=== PATIENT | female | born 1955 | race Caucasian/White ===

== ENCOUNTER → 2016-07-09 | Outpatient (REF) | payer OTHER ==
[~2016-07-09] MED LIST: CEFT500T3 PO; CHLO25TA PO; IMOD2TAB16 PO; LISI-538 PO; TYLE325T5 PO
[2016-07-09 19:22] LABS: CALCIUM LEVEL 9.4 MG/DL (8.8-10.2); CREATININE FOR GFR 1.03 MG/DL (0.55-1.02); PHOSPHORUS LEVEL 4.1 MG/DL (2.5-4.9); POTASSIUM SERUM 4.2 MEQ/L (3.5-5.1)
== END ==
LOC: M LAB REF 18:48
PROVIDERS: ATTEND Internal Medicine Nephrology
DX: I10 Essential (primary) hypertension (principal); N17.9 Acute kidney failure, unspecified; Z72.0 Tobacco use

== ENCOUNTER → 2016-07-23 | Outpatient (REF) | payer MEDICAID | LOC: M SFHCLERA 17:03 | PROVIDERS: ATTEND Nurse Practitioner Family | DX: R22.1 Localized swelling, mass and lump, neck (principal) ==

== ENCOUNTER → 2017-05-20 | Outpatient (CLI) | payer OTHER | LOC: M RAD 12:51 | DX: R05 Cough (principal); Z80.1 Family history of malignant neoplasm of trachea, bronchus and lung; F17.210 Nicotine dependence, cigarettes, uncomplicated | CPT/HCPCS: G0297 ==

== ENCOUNTER → 2017-06-16 | Outpatient (CLI) | payer OTHER | LOC: M PLARAD 13:10 | DX: R91.8 Other nonspecific abnormal finding of lung field (principal) | CPT/HCPCS: 78815 ==

== ENCOUNTER → 2017-07-15 | Outpatient (CLI) | payer OTHER ==
[2017-07-15 13:34] LABS: APPEARANCE, URINE CLEAR (CLEAR); BACTERIA, URINE AUTO NEGATIVE (NEGATIVE); BILIRUBIN, URINE AUTO NEGATIVE (NEGATIVE); BLOOD, URINE BLOOD NEGATIVE (NEGATIVE); COLOR, URINE STRAW (YELLOW); GLUCOSE, URINE (UA) AUTO NEGATIVE (NEGATIVE); KETONE, URINE AUTO NEGATIVE (NEGATIVE); LEUKOCYTE ESTERASE, URINE AUTO NEGATIVE (NEGATIVE); NITRITE, URINE AUTO NEGATIVE (NEGATIVE); PROTEIN, URINE AUTO NEGATIVE (NEGATIVE); RBC, URINE AUTO 1 /HPF (0-3); SPECIFIC GRAVITY URINE AUTO 1.008 (1.002-1.035); SQUAMOUS EPITHELIAL CELL UR AU 0 /HPF (0-6); UROBILINOGEN, URINE AUTO 0.2 mg/dL (0.0-2.0); WBC, URINE AUTO 0 /HPF (0-3)
[2017-07-15 14:01] LABS: ANION GAP 8 MEQ/L (8-16); BLOOD UREA NITROGEN 11 MG/DL (7-18); CALCIUM LEVEL 9.3 MG/DL (8.8-10.2); CARBON DIOXIDE LEVEL 25 MEQ/L (21-32); CHLORIDE LEVEL 107 MEQ/L (98-107); CREATININE FOR GFR 0.89 MG/DL (0.55-1.30); GLOMERULAR FILTRATION RATE > 60.0 (>45); GLUCOSE, FASTING 83 MG/DL (70-100); PHOSPHORUS LEVEL 3.8 MG/DL (2.5-4.9); POTASSIUM SERUM 4.4 MEQ/L (3.5-5.1); SODIUM LEVEL 140 MEQ/L (136-145)
== END ==
LOC: M LAB 12:47
DX: I10 Essential (primary) hypertension (principal); N17.9 Acute kidney failure, unspecified; Z72.0 Tobacco use
CPT/HCPCS: 80069

== ENCOUNTER → 2017-07-22 | Outpatient (CLI) | payer OTHER, MEDICAID | LOC: M LRY 11:44 | DX: R10.10 Upper abdominal pain, unspecified (principal) | CPT/HCPCS: 74018 ==

== ENCOUNTER → 2018-09-13 | Outpatient (CLI) | payer OTHER ==
[~2018-09-13] MED LIST changes: +CHLO125TA PO; -CHLO25TA PO
[2018-09-13 11:43] LABS: APPEARANCE, URINE HAZY (CLEAR); BACTERIA, URINE AUTO NEGATIVE (NEGATIVE); BILIRUBIN, URINE AUTO NEGATIVE (NEGATIVE); BLOOD, URINE BLOOD NEGATIVE (NEGATIVE); COLOR, URINE YELLOW (YELLOW); GLUCOSE, URINE (UA) AUTO NEGATIVE (NEGATIVE); KETONE, URINE AUTO TRACE mg/dL (NEGATIVE); LEUKOCYTE ESTERASE, URINE AUTO NEGATIVE (NEGATIVE); NITRITE, URINE AUTO NEGATIVE (NEGATIVE); PROTEIN, URINE AUTO NEGATIVE (NEGATIVE); RBC, URINE AUTO 2 /HPF (0-3); SPECIFIC GRAVITY URINE AUTO 1.015 (1.002-1.035); SQUAMOUS EPITHELIAL CELL UR AU 0 /HPF (0-6); WBC, URINE AUTO 1 /HPF (0-3)
[2018-09-13 12:40] LABS: CALCIUM LEVEL 9.4 MG/DL (8.8-10.2); GLOMERULAR FILTRATION RATE 59.6 (>45); PHOSPHORUS LEVEL 3.6 MG/DL (2.5-4.9); POTASSIUM SERUM 4.5 MEQ/L (3.5-5.1)
== END ==
LOC: M LAB 11:06
PROVIDERS: ATTEND Internal Medicine Nephrology
DX: I10 Essential (primary) hypertension (principal); N17.9 Acute kidney failure, unspecified; Z72.0 Tobacco use

== ENCOUNTER → 2019-01-10 | Outpatient (CLI) | payer OTHER ==
--- NOTE | 2019-01-10 23:05 | REP ---
PET/CT: HISTORY: Diagnosing lung nodule. COMPARISON: Comparison PET/CT study 06/16/2017. Comparison chest CT 05/20/2017. Comparison chest CT study is also reviewed from 12/14/2018. TECHNIQUE: 51 minutes following the intravenous injection of a 9.04 mCi dose of F-18 FDG, three-dimensional PET scintigraphy is acquired from the skull base to the proximal thighs. Triplanar noncontrast CT scanning is acquired through the same anatomic range for attenuation correction and image registration with scan parameters optimized to minimize radiation exposure to the patient. PET scintigraphy and CT datasets were fused and displayed on a workstation with multiplanar and projection display capability. PET/CT FINDINGS: The previously noted irregular nodular density in the right upper lobe is again seen. It appears unchanged on lung window settings from the accompanying CT study compared to the prior PET/CT from 05/20/2017. It remains non-avid. Maximum standard uptake value 0.78 today, previously 0.73. It appears there is no abnormal hypermetabolic pulmonary parenchymal uptake. No abnormal hilar or mediastinal hypermetabolic uptake is appreciated. There is a non-avid stable precarinal lymph node, which is not enlarged. Maximum standard uptake value 1.79. No abnormal adrenal uptake is seen. The abdomen/pelvis shows normal hepatic, splenic, gastrointestinal, and genitourinary FDG distribution. Head and neck soft tissues are unremarkable. IMPRESSION: Negative PET scintigraphy. No abnormal hypermetabolic uptake is seen in the nodule in the right upper lobe. No significant change seen on PET/CT. Electronically Signed by Jasson Nielson MD 01/11/2019 07:47 A
== END ==
LOC: M PLARAD 07:39
PROVIDERS: ATTEND Family Medicine
DX: R91.1 Solitary pulmonary nodule (principal)
CPT/HCPCS: 78815; A9552

== ENCOUNTER → 2019-11-29 | Outpatient (REF) | payer OTHER ==
[~2019-11-29] MED LIST changes: +AMLO1TAB25 PO; +CARV6.25 PO; +LORA-674 PO; +LOSA50TA88 PO; +NAPR-1182 PO; +NIAC400C2 PO; +ONDA8TAB10 PO; +OXYC-517 PO; +PROC10TA4 PO
[2019-11-29 19:35] LABS: CREATININE FOR GFR 1.15 MG/DL (0.55-1.30); GLOMERULAR FILTRATION RATE 50.6 (>45); POTASSIUM SERUM 3.7 MEQ/L (3.5-5.1)
== END ==
LOC: M LAB REF 17:54
PROVIDERS: ATTEND Nurse Practitioner Family
DX: N18.2 Chronic kidney disease, stage 2 (mild) (principal); E87.6 Hypokalemia

== ENCOUNTER → 2020-01-02 | Outpatient (CLI) | payer OTHER ==
[~2020-01-02] MED LIST changes: -NIAC400C2 PO; -ONDA8TAB10 PO; -OXYC-517 PO; -PROC10TA4 PO
--- NOTE | 2020-01-05 16:24 | REP ---
PET CT HISTORY: Spiculated lung nodule on chest CT. Rule out malignancy. Positive family history of cancer. COMPARISON: PET CT study 01/10/2019 and 06/16/2017. CT study chest 11/28/2019. TECHNIQUE: 1 hour and 11 minutes following the intravenous injection of an 8.67 mCi dose of F18 fluorodeoxyglucose (FDG), three-dimensional PET CT imaging is acquired from the skull base to the proximal thighs. PET CT FINDINGS: The head and neck soft tissues are unremarkable. There is some normal variant skeletal muscle uptake in the scalene muscles bilaterally. The previously noted right upper lobe spiculated nodule, which has enlarged in the interval since the last PET CT has become hypermetabolic. Maximum standard uptake value in this nodule today is measured at 7.67, previously 0.78. There is no abnormal hypermetabolic uptake elsewhere in the lungs. No abnormal hilar or mediastinal hypermetabolic uptake is seen. A stable normal size precarinal lymph node is seen, which is not hypermetabolic. Maximum standard uptake value 1.92. No abnormal adrenal uptake or mass is seen. There is a left renal cyst. No abnormal uptake is seen in the abdomen. In the pelvis, there is hypermetabolic uptake in the distribution of the vagina and/or cervix adjacent to some air. This is most likely urinary contamination in the region of the vagina versus misregistration. However, a cervical neoplasm could conceivably be hypermetabolic in this distribution and correlation with pelvic examination and speculum exam suggested. No other pelvic hypermetabolic uptake is seen. No evidence of adenopathy. No bony lesion seen. IMPRESSION: 1. The enlarging spiculated right upper lobe nodule has become hypermetabolic and is certainly considered suspicious. No other abnormal hypermetabolic uptake is seen in the thorax. 2. Incidental uptake in the region of the uterine cervix and/or upper vagina, question urinary contamination versus cervical neoplasm. Clinical correlation suggested. [facility]
== END ==
LOC: M PLARAD 07:51
PROVIDERS: ATTEND Family Medicine
DX: R91.1 Solitary pulmonary nodule (principal)
CPT/HCPCS: 78815; A9552

== ENCOUNTER → 2020-01-16 | Outpatient (CLI) | payer OTHER ==
--- NOTE | 2020-01-16 15:54 | RADONC.CN ---
Radiation Oncology Hx/Consult Radiation Oncology Consult Date of Service: Jan 16, 2020 Pt Identifier Ahsan Scott is a 64 year old female current smoker with a FIGO IIB SCC of the cervix. She also has a PET-CT avid RUL lesion radiographically consistent with stage I NSCLC, biopsy pending. She is seen today at the request of Dr. Jaeger for consideration of the pelvic chemoradiation portion of her treatment. Diagnosis/Treatment History Oncologic History Has been followed radiographically for a RUL lesion for several years. She has received intermittent well-woman cervical cancer screening and prior to this diagnosis she has not had any abnormal pap smears that she knows of. September 2019: Presented with cramping and scant bleeding per vagina. 12/05/19: Vaginal US was performed concerning for malignancy. 12/25/19: Biopsy performed showing HPV+ SCC. Dr. Carlson noted left parametrial involvement on rectal exam. 01/02/20: PET-CT with cervical uptake ~4cm in extent, no suspicious adenopathy, as well as newly demonstrated avidity in the RUL nodule (which was previously non-hypermetabolic on 01/10/19 PET-CT). 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 She has been taking ibuprofen and naproxen without significant relief. She has scant bleeding from below. No urinary complaints. No GI complaints at baseline. She has intact energy level. Has not been losing weight. She continues to smoke. Trying to cut down, does not want quit aids at this time. She is aware of plan to biopsy lung nodule, does not have appointment yet. Past Medical History: Vertigo Lactose intolerance HTN Past Surgical History: None Family History: Mom: Lung cancer and uterine cancer Social History: Smokes daily 36+ pack year Drinks 2 alcoholic beverages per week Allergies / Meds Allergies: Coded Allergies: No Known Allergies (Unverified , 10/29/14) Home Meds Reported Medications Carvedilol (Carvedilol) 6.25 Mg Tablet 01/16/20 Losartan Potassium (Losartan Potassium) 50 Mg Tablet 01/16/20 Loratadine (Loratadine) 10 Mg Tablet 01/16/20 Naproxen (EC-Naproxen) 500 Mg Tablet. 01/16/20 Cefuroxime Axetil (Ceftin) 500 Mg Tab, 500 MG PO BID, TAB 11/01/14 Loperamide Hcl (Imodium A-D) 2 Mg Tab, 2 MG PO ASDIRECTED, TAB 11/01/14 Acetaminophen (Tylenol) 325 Mg Tab, 650 MG PO Q4HP PRN for PAIN, TAB 11/01/14 Review of Systems Constitutional: Denies: Chills, Fever, Night Sweats Eyes: Denies: Pain, Vision change HEENT: Denies: Head Aches, Dysphagia, Sore Throat Skin: Denies: Rash, Lesions, Bruising Pulmonary: Denies: Dyspnea, Cough Cardiovascular: Denies: Chest Pain, Palpitations, Edema Gastrointestinal: Denies: Nausea, Vomiting, Abdominal Pain, Diarrhea Genitourinary: Denies: Dysuria, Frequency, Incontinence Hematologic: Denies: Bruising, Petecchia, Enlarged Lymph Nodes Musculoskeletal: Denies: Neck pain, Back pain Neurological: Denies: Weakness, Numbness, Incoordination Psych: Reports: Mood Normal; Denies: Memory Issues, Thoughts of Self Harm Vital Signs Ht 60" Wt 115 lb T 97 P 78 RR 18 BP 151/83 O2 100% Pain 3 Fatigue 2 General Exam: Positive: Alert, Cooperative, No Acute Distress Eye Exam: Positive: PERRLA, EOMI ENT EXAM: Positive: Mucous membr. moist/pink, Pharynx Normal Neck Exam: Negative: Thyromegaly, Lymphadenopathy Chest Exam: Positive: Normal air movement; Negative: Rales, Rhonchi, Wheezing Heart Exam: Positive: Rate Normal, Regular Rhythm Abdomen Exam: Positive: Soft; Negative: Tenderness, Mass Female Exam: Positive: Nl Ext Genitalia, Tenderness, Nl Rectal Sphincter Tone; Negative: Normal Cervical Exam (On speculum exam, there is friable cervical mass noted, with scant bleeding, it is in excess of 3 cm in visual extent. Digital exam without discernable palpable parametrial involvement. Bloody return noted on glove. On rectal exam I do not appreciate any parametrial involvement, there is no blood on the glove. Her uterus is tender on bimanual exam, I do not feel any masses. ), Odor Extremity Exam: Negative: Edema, Tenderness Skin Exam: Positive: Nl turgor and temperature; Negative: Rash Neuro Exam: Positive: Normal Gait, Normal Speech, Cranial Nerves 3-12 NL Psych Exam: Positive: Mental status NL, Mood NL, Memory Intact Diagnostic and Laboratory Diagnostic Review Radiologic images, relevant labs and pathology reports were personally reviewed and discussed with Ms. Scott. Assessment and Plan Impression Ms. Scott is a 64 year old female with a history of FIGO IIB SCC of the cervix. She also has a PET-CT avid RUL lesion radiographically consistent with stage I NSCLC, biopsy pending. She is seen today at the request of Dr. Jaeger for consideration of the pelvic chemoradiation portion of her treatment. 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 Scott regarding the diagnosis at hand and available therapeutic options. Biopsy of the likely stage I NSCLC is pending, being arranged at [facility]. Once work up of this nodule is complete she may be appropriate for SBRT as definitive treatment, as this would be less logistically fraught given the oncologic priority of the cervical cancer, the several months treatment and recovery will take. Lobectomy may also be morbid given she is a current smoker and has COPD. I will defer to the recommendations at [facility] on this point. For her EBRT I will give 45 Gy in 25 fractions with VMAT. I will arrange for her to see here for weekly cisplatin during RT. Upon completion Dr. Jaeger will do her brachytherapy. We discussed the logistics of receiving radiation therapy in detail including the need for a 1-time planning session. This will occur next week. We reviewed the toxicity of treatment including fatigue, nausea, vomiting, diarrhea and irritative symptoms. She has undertreated pelvic pain currently refractory to NSAIDs. I will prescribe a supply of 5 mg oxycodone for breakthrough pain to be taken in conjunction with scheduled ibuprofen or naproxen. After discussing the risks, benefits and alternatives to radiation therapy, Ms. Scott was amenable to pursuing radiotherapy. All questions were answered to the patient's satisfaction. We instructed the patient that if there were any questions,concerns or changes in clinical status in the interim to contact us. Recommendations EBRT 45 Gy in 25 fractions w/ VMAT Weekly cisplatin per (appointment 01/17/20) Simulation week of 01/22/[address] Jaeger Workup of RUL nodule at [facility], happy to facilitate SBRT here as a definitive option, if deemed appropriate Oxycodone 5 mg QID PRN for breakthrough pain YEIMI CHAPARRO MD Jan 16, 2020 15:54
== END ==
LOC: M ONCR 13:41
PROVIDERS: ATTEND General Practice
DX: C53.0 Malignant neoplasm of endocervix (principal)

== ENCOUNTER 2020-01-23 10:35 | Outpatient (RCR) | payer OTHER | END 2020-01-27 | LOC: M ONCR 10:35 | PROVIDERS: ATTEND General Practice | DX: C53.0 Malignant neoplasm of endocervix (principal) ==

== ENCOUNTER → 2020-02-05 | Outpatient (CLI) | payer MEDICARE, OTHER ==
[~2020-02-05] MED LIST changes: +LIDOCAINE 1% MDV 20ML VIAL As Ordered ONE; +LIDVISCBTL VG; +MAGICMW SSP; +NIAC400C2 PO; +ONDA8TAB10 PO; +OXYC-517 PO; +PROC10TA4 PO; +SODIUM BICARBONATE 8.4% INJ 50MEQ 50 ML VIAL As Ordered ONE
--- NOTE | 2020-02-05 11:38 | REP ---
INDICATION: POST RIGHT LUNG BX WITH INSPIRATION. COMPARISON: None. TECHNIQUE: PA inspiration single-view. FINDINGS: There is a ill-defined density at the biopsy site in the right upper perihilar region. There is no evidence of pneumothorax or hydrothorax. Lung franco are otherwise clear. A cardiomediastinal silhouette is unremarkable. IMPRESSION: No evidence of pneumothorax. <Electronically signed by Arcenio Nielson > 02/05/20 [id number]
[2020-02-05 12:27] VITALS: BP 125/79
--- NOTE | 2020-02-05 16:05 | REP ---
INDICATION: LUNG BIOPSY, CERVICAL CANCER. COMPARISON: None. TECHNIQUE: The procedure is performed by Alethea Rutledge [facility], under the direct supervision of Dr. Nielson. The risks and benefits of the procedure were explained to the patient and informed consent was obtained both orally and written. Directly prior to the start of the procedure, a formal timeout was done in the exam room. The right upper lobe lung nodule was localized using CT guidance. Skin was prepped and draped in the usual sterile fashion. Two ml of 1% lidocaine 10 mg/ml was used as a local anesthetic. FINDINGS: Using CT guidance a 19/20 gauge coaxial needle biopsy system was inserted and advanced into the nodule. Six core biopsy samples were obtained and sent to the lab. CT images obtained directly after the biopsy show no evidence of pneumothorax. After the appropriate amount of monitored convalescence the patient was discharged from the department. IMPRESSION: CT-guided biopsy of a right upper lobe lung nodule. <Electronically signed by Alethea Rutledge > 02/05/20 1547 <Electronically signed by Arcenio Nielson > 02/05/20 1601
== END ==
LOC: M IRPRO 08:29
PROVIDERS: ATTEND Internal Medicine Medical Oncology
DX: C34.11 Malignant neoplasm of upper lobe, right bronchus or lung (principal); C53.9 Malignant neoplasm of cervix uteri, unspecified

== ENCOUNTER → 2020-02-09 | Outpatient (CLI) | payer MEDICARE, OTHER ==
[~2020-02-09] MED LIST changes: -LIDOCAINE 1% MDV 20ML VIAL As Ordered ONE; -MAGICMW SSP; +PROHANCE 279.3MG/ML 15ML VIAL As Ordered ONE; -SODIUM BICARBONATE 8.4% INJ 50MEQ 50 ML VIAL As Ordered ONE
--- NOTE | 2020-02-09 12:16 | REP ---
INDICATION: CERVICAL CA. . COMPARISON: Comparison PET-CT January 02, 2020. TECHNIQUE: Using a phased array surface coil, small egket-[id number] imaging was acquired using T2 weighted scans in the axial, coronal, and sagittal imaging planes. Small mmndy-nl-afen diffusion-weighted sequences are acquired. Small olhjl-um-[id number] axial T1 weighted scans are acquired dynamically before and after the intravenous administration of 10 mL of ProHance. Imaging is reviewed using the [employer] computer-aided detection system. FINDINGS: There is a heterogeneous somewhat lobulated mass in the cervix. This measures 3.3 cm right to left by 3.5 cm cranial to caudal by 3.5 cm anteroposterior. Lesion appears to be limited to the cervix and possibly, the vaginal fornix region. There appears to be a fat plane between the anterior portion of the lesion and the opposing surface of the urinary bladder. However, there is streaky low T1 high T2 signal intensity in the left lateral, and to a lesser extent right lateral parametrial fat. This area shows contrast enhancement suggesting parametrial extension. The cervical mass shows restricted diffusion on diffusion-weighted scans. There is no visible pelvic adenopathy. Bone signal intensity is normal. There is thinning of the myometrium along the anterior aspect of the lower uterine segment above the mass lesion suggesting previous scar. The endometrium does not appear distended. IMPRESSION: 3.3 x 3.5 x 3.5 cm lobulated mass in the cervix with soft tissue infiltration and enhancement of the parametrium medially and laterally. No visible adenopathy. <Electronically signed by Arcenio Nielson > 02/09/20 [id number]
== END ==
LOC: M RAD 09:17
PROVIDERS: ATTEND General Practice
DX: C53.0 Malignant neoplasm of endocervix (principal)
CPT/HCPCS: 72197; A9576

== ENCOUNTER → 2020-02-26 | Outpatient (RCR) | payer OTHER ==
[~2020-02-26] MED LIST changes: -PROHANCE 279.3MG/ML 15ML VIAL As Ordered ONE
== END ==
LOC: M ONCR 01-29 11:36
PROVIDERS: ATTEND General Practice
DX: C53.0 Malignant neoplasm of endocervix (principal)

== ENCOUNTER → 2020-03-18 | Outpatient (CLI) | payer MEDICARE, OTHER ==
[~2020-03-18] MED LIST changes: +MAGICMW SSP; +OXYC10TA12 PO
--- NOTE | 2020-03-18 14:13 | REP ---
INDICATION: MALIGNANT NEOPLASM OF UPPER LOBE CHEST COMPARISON: 11/28/2019 TECHNIQUE: Axial noncontrast images from the thoracic inlet to the upper abdomen with coronal and sagittal reformations. This CT examination was performed using the following dose reduction techniques: Automated exposure control, adjustment of mA and/or kv according to the patient's size, and use of iterative reconstruction technique. FINDINGS: 12 mm spiculated lesion in the posterior aspect of the right upper lobe (image 35) is again identified along with mild mediastinal adenopathy. Lesion is relatively stable compared to 11/28/2019 and follow-up biopsy results is required. No new suspicious nodule or mass lesion identified. No consolidation. No effusion. No pneumothorax. Tracheobronchial tree is patent. Further evaluation of the mediastinum demonstrates atherosclerotic changes to the thoracic aorta and coronary arteries without aortic aneurysm or cardiomegaly. No pericardial effusion. Limited upper abdomen demonstrates normal bilateral adrenal glands and bilateral renal hypodensities. IMPRESSION: Stable 12 mm spiculated lesion in the posterior right upper lobe. Correlation with biopsy results required. No new lesions are identified. <Electronically signed by Abhijit Mejia > 03/18/20 [id number]
== END ==
LOC: M RAD 12:57
PROVIDERS: ATTEND Internal Medicine Pulmonary Disease
DX: C34.11 Malignant neoplasm of upper lobe, right bronchus or lung (principal)

== ENCOUNTER 2020-03-20 08:10 | Outpatient (RCR) | payer MEDICARE, OTHER ==
[~2020-03-20 08:10] MED LIST changes: -OXYC10TA12 PO
[2020-03-26] MEDS ORDERED: OXYC10TA12 PO (09:43)
--- NOTE | 2020-03-26 09:51 | RADENCPD ---
Date/Time of Encounter Date of Encounter: Mar 26, 2020 Time of Encounter: 09:49 Encounter Spoke to Ahsan, her diarrhea is abating, however she notes dyschezia with BMs (having 1-2 soft per day), this is a consequence of high rectal dose from her EBRT/brachy, likely to subside over the next 2-3 weeks. In the meantime she is finding oxycodone 10 mg PRN helpful, therefore I will extend her prescription for an additional 4 weeks, which should see her through this. She has spoken to the thoracic surgery team at [facility] and sees Dr. Horton on 04/02/20. I will await their input prior to pursuing SBRT to her lung lesion. YEIMI CHAPARRO MD Mar 26, 2020 09:51
[2020-03-27] MEDS ORDERED: OXYC-517 PO (17:13)
== END 2020-03-28 ==
LOC: M ONCR 08:10
PROVIDERS: ATTEND General Practice
DX: C53.0 Malignant neoplasm of endocervix (principal)

== ENCOUNTER 2020-04-26 11:38 | Outpatient (RCR) | payer MEDICARE, OTHER ==
[~2020-04-26 11:38] MED LIST changes: +OXYC10TA12 PO; +SERT25TA85 PO
== END 2020-04-28 ==
LOC: M ONCR 11:38
PROVIDERS: ATTEND General Practice
DX: C34.11 Malignant neoplasm of upper lobe, right bronchus or lung (principal); C53.0 Malignant neoplasm of endocervix

== ENCOUNTER → 2020-07-08 | Outpatient (CLI) | payer MEDICARE, OTHER ==
[~2020-07-08] MED LIST changes: -LISI-538 PO; +LISI20TA33 PO
== END ==
LOC: M PLARAD 07:44
PROVIDERS: ATTEND General Practice
DX: Z53.20 Procedure and treatment not carried out because of patient's decision for unspecified reasons (principal)

== ENCOUNTER → 2020-07-16 | Outpatient (CLI) | payer MEDICARE, OTHER ==
[~2020-07-16] MED LIST changes: +BUPR150T5; +LIDO2SOL17 PO
--- NOTE | 2020-07-16 13:04 | RADONC ---
Radiation Oncology Hx/FUP Radiation Oncology Hx/FUP Date of Service: Jul 16, 2020 Pt Identifier Ahsan Scott is a 65 year old female current smoker seen for a followup visit today at the department of radiation oncology for a history of FIGO IIB SCC of the cervix s/p chemoradiation 45 Gy in 25 fractions to the pelvis with weekly cisplatin completed 03/20/20 followed by brachytherapy boost 30 Gy in [address] Jaeger at [facility] completed 03/14/20. She also has biopsy proven RUL [id number] stage IA2 NSCLC s/p SBRT 60 Gy in 5 fractions completed 04/26/20. Diagnosis/Treatment History Oncologic History Has been followed radiographically for a RUL lesion for several years. She has received intermittent well-woman cervical cancer screening and prior to this diagnosis she has not had any abnormal pap smears that she knows of. September 2019: Presented with cramping and scant bleeding per vagina. 12/05/19: Vaginal US was performed concerning for malignancy. 12/25/19: Biopsy performed showing HPV+ SCC. Dr. Carlson noted left parametrial i nvolvement on rectal exam. 01/02/20: PET-CT with cervical uptake ~4cm in extent, no suspicious adenopathy, as well as newly demonstrated avidity in the RUL nodule (which was previously non-hypermetabolic on 01/10/19 PET-CT). 02/05/20: RUL nodule percutaneous biopsy showing adenocarcinoma 02/04/20-03/20/20: Chemoradiation 45 Gy in 25 fractions to the pelvis with weekly cisplatin. Brachytherapy boost 30 Gy in 5 fractions completed intercurrent on 03/14/20. 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 Carlson 07/16/20 Pelvic exam done here Vaginal dilator provided Smoking cessation Assess annually if applicable Fall 2020 Assessed 07/16/20 no desire to quit Down to 5 cig/day Chest imaging As indicated, indefinite CT surveillance PET-CT 07/22/20 If negative then next in 6 months Mammograms Min q1y, in eligible female patients July 2020 Patient has scheduled Echocardiogram q10y post treatment if mediastinum treated N/A PFTs As indicated N/A CBC,CMP, Lipids q1y Fall 2020 *If supraclavicular field treated Interval History Ahsan reports she is down to smoking 5 cigarettes per day. She does not wish to quit at this time. She is upset that her PET-CT was rescheduled. She has appointments with her [facility] specialists pending the PET-CT on 07/22/20. She has no pelvic pain or discharge from below. No bleeding. No dysuria. No diarrhea or BRBPR. Her appetite and energy levels have improved since completing her RT. She has no SOB, cough or chest pain. She received her COVID vaccination without difficulty. She has a mammogram pending in July. Her only complaint today is ongoing painful ulceration in her mouth. This has been present since the start of chemoradiation, she has been using witch iraiad mouth rinses with some positive effect. She says her dentures are fitting poorly, wonders if this has anything to do with her ulcers. She planned to see a dentist in [place] but has been holding off pending her PET-CT and evidence of remission. She is still working, not struggling as bad to make it through her shifts. Current Therapy Surveillance Stage Cervical SCC FIGO IIB ([id number]) RUL NSCLC [id number] stage IA2 Social History: Current smoker 30+ pack years Drinks alcohol 2-3 drinks per week Allergies / Meds Allergies: Coded Allergies: No Known Allergies (Unverified , 10/29/14) Home Meds Active Scripts Lidocaine HCl (Lidocaine HCl Viscous) 15 Ml Solution, 15 ML PO QID for mouth sore pain for 1 Day, #100 ML 1 Refill Prov:YEIMI CHAPARRO MD 07/16/20 Sertraline Hcl (Sertraline HCl) 25 Mg Tablet, 1 TAB PO DAILY for 30 Days, #30 TAB 5 Refills Prov:YEIMI CHAPARRO MD 04/22/20 Ondansetron HCl (Ondansetron HCl) 8 Mg Tablet, 8 MG PO Q12HP PRN for NAUSEA OR VOMITING, #40 TAB 1 Refill Prov:JANINE SÁNCHEZ MD 04/08/20 Oxycodone HCl (Oxycodone HCl) 5 Mg Tablet, 5 MG PO QIDP PRN for pain MDD 4 Tablet(s) for 30 Days, #120 TAB Prov:LIA ROA MD 03/27/20 Reported Medications Bupropion Hcl (Bupropion HCl Sr) 150 Mg Tab.sr.12h 07/16/20 Niacin (Inositol Niacinate) (Niacin Flush Free 500 mg Cap) 400 Mg Capsule, 2500 MG PO QHS, CAP 02/05/20 Losartan Potassium (Losartan Potassium) 50 Mg Tablet, 50 MG PO DAILY, TAB TAKES AT NOON 02/05/20 Amlodipine Besylate (Amlodipine Besylate) 10 Mg Tablet, 10 MG PO QHS, TAB 02/05/20 Carvedilol (Carvedilol) 6.25 Mg Tablet, 6.25 MG PO BID, TAB 02/05/20 Loratadine (Loratadine) 10 Mg Tablet, 10 MG PO DAILY, TAB 02/05/20 Discontinued Scripts Lidocaine HCl (Lidocaine HCl Viscous) 100 Ml Solution, 2 ML VG TIDP PRN for PAIN for 6 Days, #100 ML 3 Refills Apply intravaginally with syringe Prov:YEIMI CHAPARRO MD 02/28/20 Review of Systems Review of Systems Constitutional: Reports: Fatigue; Denies: Chills, Fever Eyes: Denies: Pain HEENT: Denies: Head Aches Skin: Denies: Rash Pulmonary: Denies: Dyspnea, Cough, Pleuritic Chest Pain Cardiovascular: Denies: Chest Pain, Palpitations Gastrointestinal: Denies: Nausea, Abdominal Pain, Hematochezia Genitourinary: Denies: Dysuria, Frequency Hematologic: Denies: Enlarged Lymph Nodes Endocrine: Denies: Cold Intolerance Musculoskeletal: Denies: Neck pain, Back pain Neurological: Denies: Weakness, Numbness Psych: Reports: Mood Normal Physical Examination Vital Signs Ht 60" Wt 112 lbs T 97.7 P 81 RR 18 BP 161/77 O2 98% Pain 0 Fatigue 2 General Exam: Positive: Alert, Cooperative, No Acute Distress Eye Exam: Positive: PERRLA, EOMI ENT EXAM: Positive: Atraumatic, Mucous membr. moist/pink, Tongue Midline, Other ENT (Dentures in place. There are no discernible ulcers in the soft palate or buccal mucosa BL. Did not visualize hard palate due to denture) Neck Exam: Positive: Supple; Negative: Lymphadenopathy Chest Exam: Positive: Clear to auscultation, Normal air movement; Negative: Rales, Wheezing Heart Exam: Positive: Rate Normal, Regular Rhythm Abdomen Exam: Positive: Normal bowel sounds, Soft; Negative: Tenderness Female Exam: Positive: Nl Ext Genitalia, Normal Cervical Exam (The external genitalia are atrophic, normal, there is no disccharge or odor. The vaginal mucosa is pal and atrophic, there are adhersions and stenosis of the proximal vagina. There was scant bleeding from the adhesions in the left proximal vagina as the speculum was passes, this was painful. The cervical os was easily visualized it is pale without any associated lesions, it is of normal size. There is no palpable mass on digital exam. There is no tenderness on bimanual exam. I deferred rectovaginal exam today.); Negative: Discharge Extremity Exam: Negative: Edema Skin Exam: Positive: Nl turgor and temperature Neuro Exam: Positive: Normal Gait, Normal Speech, Cranial Nerves 3-12 NL Psych Exam: Positive: Mental status NL Diagnostic and Laboratory Diagnostic Review Radiologic images, relevant labs and pathology reports were personally reviewed and discussed with Ms. Scott. Assessment and Plan Impression Assessment Ms. Scott is a 65 year old female with a history of FIGO IIB SCC of the cervix s/p chemoradiation 45 Gy in 25 fractions to the pelvis with weekly cisplatin completed 03/20/20 followed by brachytherapy boost 30 Gy in [address] Jaeger at [facility] completed 03/14/20. She also has biopsy proven RUL [id number] stage IA2 NSCLC s/p SBRT 60 Gy in 5 fractions completed 04/26/20. She is doing very well and largely recovered from her treatment related side effects. On exam today she has no evidence of residual tumor. She does have expected post-radiation mucosal changes and stenosis of the vagina. I have provided her with a vaginal dilator to mitigate this. The PET-CT upcoming will be telling, and I will call her immediately with the results once I receive them. I will also convey them to Dr. Jaeger so that he and Dr. Carlson can schedule follow up with her appropriately. With respect to the RUL lesion, if the PET-CT is negative and the lesion is smaller, and there are no additional suspicious foci manifest in the lungs, then another CT chest in 6 months time would be reasonable surveillance. In the meantime I will see her again in 3 months for ongoing surveillance of her cervical cancer. For her oral ulcers, with around the time of her chemoradiation appeared to be aphthous ulcers, which I was not able to confirm on my exam today I will refer her to Dr. Watt who can evaluate and treat her. I suspect the issue may be related to minor trauma from her ill-fitting dentures. Performance Status ECOG 0 Plan Will call with PET-CT results Will convey to Dr. Jaeger so that he can coordinate follow up If PET-CT negative, then CT chest in 6 months as discussed above Follow up in 3 months for ongoing cervical cancer surveillance/survivorship care Vaginal dilator provided Referral to dentist Mammogram in July as scheduled Ms. Scott was encouraged to call with questions or concerns in the interim period. Billing Statement Total time of [39] minutes was spent preparing for the visit [3], obtaining HPI [4], examining the patient [5], reviewing diagnostic tests [2], discussing management options [15], coordinating care [2], and writing this note [8]. YEIMI CHAPARRO MD Jul 16, 2020 13:05
== END ==
LOC: M ONCR 10:13
PROVIDERS: ATTEND General Practice
DX: C53.0 Malignant neoplasm of endocervix (principal)

== ENCOUNTER → 2020-07-23 | Outpatient (CLI) | payer MEDICARE, OTHER ==
--- NOTE | 2020-07-23 10:02 | REP ---
INDICATION: MONITORING MALIGNANT NEOPLASM OF ENDOCERVIX C53.0. Patient is status post chemo and radiation therapy for cervical carcinoma and status post SBRT for adenocarcinoma right upper lobe nodule. Restaging. COMPARISON: Comparison PET-CT study 02 January 2020. Comparison PET-CT study is also reviewed from January 10, 2019.. TECHNIQUE: Forty-seven minutes following the intravenous injection of a 15.74 mCi dose of F-18 FDG, three-dimensional PET scintigraphy is acquired from the skull base to the proximal thighs. Triplanar noncontrast CT scanning is acquired through the same anatomic range for attenuation correction, and image registration with scan parameters optimized to minimize radiation exposure to the patient. PET scintigraphy and CT datasets were fused and displayed on a workstation with multiplanar and projection display capability. FINDINGS: Head and neck soft tissues are unremarkable. There is no abnormal hilar or mediastinal rosio hypermetabolic uptake. No abnormal hypermetabolic pulmonary parenchymal uptake is appreciated. The uptake pattern in the right upper lobe pulmonary nodule is improved. Maximum standard uptake value today is 1.56. The nodule persists but is smaller and no longer cavitary in appearance. Previous SUV value was 7.67. There is no abnormal adrenal uptake. In the abdomen and pelvis, there is normal hepatic, splenic, gastrointestinal, and genitourinary FDG accumulation. No abnormal pelvic uptake is seen today. IMPRESSION: Improvement noted in the right upper lobe nodule which is no longer hypermetabolic. No abnormal hypermetabolic uptake is seen on today's PET-CT study <Electronically signed by Arcenio Nielson > 07/23/20 [id number]
== END ==
LOC: M PLARAD 07:42
PROVIDERS: ATTEND General Practice
DX: C53.0 Malignant neoplasm of endocervix (principal); R91.1 Solitary pulmonary nodule
CPT/HCPCS: 78815; A9552

== ENCOUNTER → 2020-11-04 | Outpatient (CLI) | payer MEDICARE ==
--- NOTE | 2020-11-04 16:19 | RADONC ---
Radiation Oncology Hx/FUP Radiation Oncology Hx/FUP Date of Service: Nov 04, 2020 Pt Identifier Ahsan Scott is a 65 year old female current smoker seen for a followup visit today at the department of radiation oncology for a history of FIGO IIB SCC of the cervix s/p chemoradiation 45 Gy in 25 fractions to the pelvis with weekly cisplatin completed 03/20/20 followed by brachytherapy boost 30 Gy in [address] Jaeger at [facility] completed 03/14/20. She also has biopsy proven RUL [id number] stage IA2 NSCLC s/p SBRT 60 Gy in 5 fractions completed 04/26/20. Diagnosis/Treatment History Oncologic History Has been followed radiographically for a RUL lesion for several years. She has received intermittent well-woman cervical cancer screening and prior to this diagnosis she has not had any abnormal pap smears that she knows of. September 2019: Presented with cramping and scant bleeding per vagina. 12/05/19: Vaginal US was performed concerning for malignancy. 12/25/19: Biopsy performed showing HPV+ SCC. Dr. Carlson noted left parametrial involvement on rectal exam. 01/02/20: PET-CT with cervical uptake ~4cm in extent, no suspicious adenopathy, as well as newly demonstrated avidity in the RUL nodule (which was previously non-hypermetabolic on 01/10/19 PET-CT). 02/05/20: RUL nodule percutaneous biopsy showing adenocarcinoma 02/04/20-03/20/20: Chemoradiation 45 Gy in 25 fractions to the pelvis with weekly cisplatin. Brachytherapy boost 30 Gy in 5 fractions completed intercurrent on 03/14/20. 04/22/20-04/26/20: SBRT to the RUL NSCLC 60 Gy in 5 fractions with DCA planning and amplitude gated delivery 07/22/20 PET-CT CR in lung and pelvis Lung/[employer] Test Due Next Last result Notes Pap/pelvic As indicated Defer pap to Dr. Carlson 11/202007/16/20 Pelvic exam done here Vaginal dilator provided Smoking cessation Assess annually if applicable Disccussed today, made quit attempt w/ wellbutrin, currently smoking 5-10/day Assessed 07/16/20 no desire to quit Chest imaging As indicated, indefinite CT surveillance January 2021 PET-CT 07/22/20 CR If negative then next in 6 months Mammograms Min q1y, in eligible female patients July negative Patient has scheduled Echocardiogram q10y post treatment if mediastinum treated N/A PFTs As indicated N/A CBC,CMP, Lipids q1y Summer 2021September [address] Sandoval Interval History Ahsan reports she is doing well overall. Working busy as ever. She has had a few colds which she attributes to de-masking amidst the pandemic. No COVID type symptoms, no fevers, no cough, no increased SOB. She has mild DURAN which is stable. She is seeing Dr. Horton in the coming months, as well as Dr. Carlson in November. She is smoking ~5 cigarettes daily. She has no chest wall pain. She has no urinary or bowel complaints. No discharge from below. Appetite good and energy stable. Still with some anxiety about her now year-long journey through [facility]. Current Therapy Surveillance Stage Cervical SCC FIGO IIB ([id number]) RUL NSCLC [id number] stage IA2 Social History: Current smoker 30+ pack years Drinks alcohol 2-3 drinks per week Allergies / Meds Allergies: Coded Allergies: No Known Allergies (Unverified , 10/29/14) Home Meds Active Scripts Lidocaine HCl (Lidocaine HCl Viscous) 15 Ml Solution, 15 ML PO QID for mouth so re pain for 1 Day, #100 ML 1 Refill Prov:YEIMI CHAPARRO MD 07/16/20 Sertraline Hcl (Sertraline HCl) 25 Mg Tablet, 1 TAB PO DAILY for 30 Days, #30 TAB 5 Refills Prov:YEIMI CHAPARRO MD 04/22/20 Ondansetron HCl (Ondansetron HCl) 8 Mg Tablet, 8 MG PO Q12HP PRN for NAUSEA OR VOMITING, #40 TAB 1 Refill Prov:JANINE SÁNCHEZ MD FACP 04/08/20 Oxycodone HCl (Oxycodone HCl) 5 Mg Tablet, 5 MG PO QIDP PRN for pain MDD 4 Tablet(s) for 30 Days, #120 TAB Prov:LIA ROA MD 03/27/20 Reported Medications Bupropion Hcl (Bupropion HCl Sr) 150 Mg Tab.sr.12h 07/16/20 Niacin (Inositol Niacinate) (Niacin Flush Free 500 mg Cap) 400 Mg Capsule, 2500 MG PO QHS, CAP 11/9/20 Losartan Potassium (Losartan Potassium) 50 Mg Tablet, 50 MG PO DAILY, TAB TAKES AT NOON 02/05/20 Amlodipine Besylate (Amlodipine Besylate) 10 Mg Tablet, 10 MG PO QHS, TAB 02/05/20 Carvedilol (Carvedilol) 6.25 Mg Tablet, 6.25 MG PO BID, TAB 02/05/20 Loratadine (Loratadine) 10 Mg Tablet, 10 MG PO DAILY, TAB 02/05/20 Review of Systems Review of Systems Constitutional: Denies: Fever, Weakness, Weight Loss Eyes: Denies: Pain HEENT: Denies: Head Aches Skin: Denies: Rash Pulmonary: Reports: Dyspnea; Denies: Cough, Pleuritic Chest Pain Cardiovascular: Denies: Chest Pain, Palpitations, Edema Gastrointestinal: Denies: Nausea, Abdominal Pain Genitourinary: Denies: Dysuria, Hematuria Hematologic: Denies: Bruising Musculoskeletal: Denies: Back pain Neurological: Denies: Weakness, Numbness Psych: Reports: Mood Normal Physical Examination Vital Signs Wt 140 lbs (from 112 on 07/16/20) T 97 P 87 RR 20 BP 148/80 O2 99% Pain 0 Fatigue 0 General Exam: Alert, Cooperative, No Acute Distress Eye Exam: PERRLA, EOMI ENT EXAM: Atraumatic Neck Exam: Supple Chest Exam: Clear to auscultation, Normal air movement; Negative: Wheezing Heart Exam: Rate Normal, Regular Rhythm Abdomen Exam: Soft Extremity Exam: Negative: Edema Skin Exam: Nl turgor and temperature Neuro Exam: Normal Gait, Normal Speech, Cranial Nerves 3-12 NL Psych Exam: Mental status NL Diagnostic and Laboratory Diagnostic Review Radiologic images, relevant labs and pathology reports were personally reviewed and discussed with Ms. Scott. Assessment and Plan Impression Assessment Ms. Scott is a 65 year old female with a history of current smoker seen for a followup visit today at the department of radiation oncology for a history of FI GO IIB SCC of the cervix s/p chemoradiation 45 Gy in 25 fractions to the pelvis with weekly cisplatin completed 03/20/20 followed by brachytherapy boost 30 Gy in [address] Jaeger at [facility] completed 03/14/20. She also has biopsy proven RUL [id number] stage IA2 NSCLC s/p SBRT 60 Gy in 5 fractions completed 04/26/20. Ahsan is doing well no late toxicities of RT or chemo are manifest at this time. She is up to date on survivorship care. I deferred doing a pelvic today because she has an upcoming exam with Dr. Carlson in <1 month. I discussed continuing surveillance of the chest with a CT scan in January and follow up at that time. We also reviewed smoking cessation and quit aids today (4 minutes spent). She is not ready to mount another quit at this time. Will revisit at subsequent appointment. Performance Status ECOG [address] chest in 3 months, follow up here at that time Continue follow up with Drs. Carlson and Sol Ms. Scott was encouraged to call with questions or concerns in the interim period. Billing Statement Total time of [26] minutes was spent preparing for the visit [1], obtaining HPI [6], examining the patient [2], reviewing diagnostic tests [2], discussing management options [7], coordinating care [1], and writing this note [7]. YEIMI CHAPARRO MD Nov 04, 2020 16:19
== END ==
LOC: M ONCR 13:45
PROVIDERS: ATTEND General Practice
DX: C53.0 Malignant neoplasm of endocervix (principal); C34.11 Malignant neoplasm of upper lobe, right bronchus or lung; F17.210 Nicotine dependence, cigarettes, uncomplicated; Z79.899 Other long term (current) drug therapy; Z92.3 Personal history of irradiation
CPT/HCPCS: 99406; G0463

== ENCOUNTER → 2021-01-29 | Outpatient (CLI) | payer MEDICARE ==
--- NOTE | 2021-01-29 10:33 | REP ---
INDICATION: LUNG CA F/U. COMPARISON: CT 03/18/2020, 11/28/2019; PET-CT 01/02/2020 TECHNIQUE: Noncontrast scanning through the chest with coronal and sagittal reconstructions. FINDINGS: The posterior segment right upper lobe there is a spiculated nodule which was 12.5 mm in February 2020 study and now measures about 8 mm in AP diameter. Some stranding in nearby to the periphery. Feeding vessel extends towards this lesion. Lungs are well inflated. There is some mild cylindrical bronchiectatic change. There are no other nodules, masses or acute infiltrates. There is no pleural thickening, apical pleural scarring or pneumothorax. Left lung is clear. The heart size is not enlarged. There is no pericardial thickening or effusion. Some calcifications of the aortic arch and coronary arteries are again seen. No aneurysm. Some subcentimeter nodes in the precarinal region, absence of contrast limits evaluation for hilar adenopathy. The axillary and supraclavicular region show no mass. Tracheal airway intact. The nodes in AP window, prevascular space, right paratracheal and subcarinal regions stable. The bone windows show sternum, manubrium, visualized spine, ribs, clavicles, scapulae and portions of humeral heads included all unremarkable. Upper abdomen show stable bilateral renal cysts. Adrenal glands are unremarkable. The remainder of the abdomen shows no significant or acute finding. IMPRESSION: 1. Posterior segment right upper lobe spiculated peripheral lesion decreased in size from 12.5 mm AP diameter and February 2022 8 mm now. Some peripheral stranding again noted. Feeding vessel evident. No other or new lesion. No effusion, pleural plaque or parenchymal nodules. 2. No pathologic sized mediastinal adenopathy. Subcentimeter nodes in the mediastinum are unchanged. 3. No other significant or acute finding. <Electronically signed by Sandeep Villalobos > 01/29/21 [id number]
== END ==
LOC: M RAD 08:56
PROVIDERS: ATTEND General Practice
DX: C34.11 Malignant neoplasm of upper lobe, right bronchus or lung (principal)

== ENCOUNTER → 2021-02-04 | Outpatient (CLI) | payer MEDICARE ==
--- NOTE | 2021-02-04 14:59 | RADONC ---
Radiation Oncology Hx/FUP Radiation Oncology Hx/FUP Date of Service: Feb 04, 2021 Pt Identifier Ahsan Scott is a 65 year old female current smoker seen for a followup visit today at the department of radiation oncology for a history of FIGO IIB SCC of the cervix s/p chemoradiation 45 Gy in 25 fractions to the pelvis with weekly cisplatin completed 03/20/20 followed by brachytherapy boost 30 Gy in [address] Jaeger at [facility] completed 03/14/20. She also has biopsy proven RUL [id number] stage IA2 NSCLC s/p SBRT 60 Gy in 5 fractions completed 04/26/20. Diagnosis/Treatment History Oncologic History Has been followed radiographically for a RUL lesion for several years. She has received intermittent well-woman cervical cancer screening and prior to this diagnosis she has not had any abnormal pap smears that she knows of. September 2019: Presented with cramping and scant bleeding per vagina. 12/05/19: Vaginal US was performed concerning for malignancy. 12/25/19: Biopsy performed showing HPV+ SCC. Dr. Carlson noted left parametrial involvement on rectal exam. 01/02/20: PET-CT with cervical uptake ~4cm in extent, no suspicious adenopathy, as well as newly demonstrated avidity in the RUL nodule (which was previously non-hypermetabolic on 01/10/19 PET-CT). 02/05/20: RUL nodule percutaneous biopsy showing adenocarcinoma 02/04/20-03/20/20: Chemoradiation 45 Gy in 25 fractions to the pelvis with weekly cisplatin. Brachytherapy boost 30 Gy in 5 fractions completed intercurrent on 03/14/20. 04/22/20-04/26/20: SBRT to the RUL NSCLC 60 Gy in 5 fractions with DCA planning and amplitude gated delivery 07/22/20 PET-CT CR in lung and pelvis Recent data: 01/29/21 CT chest negative 0.7 cm stable scar in location of prior RUL lesion. No new nodules Lung/[employer] Test Due Next Last result Notes Pap/pelvic As indicated Dr. Carlson / Dr. Jaeger 12/2020 Dr. Carlson negative exam/ pap Vaginal dilator provided. Deferring pelvic exams to [facility] providers Smoking cessation Assess annually if applicable Disccussed today, currently 4-5 cigarettes daily Making quit attempt w/ wellbutrin Chest imaging As indicated, indefinite CT surveillance July 2021 01/29/21 Negative q6m for 2 years, then annual Mammograms Min q1y, in eligible female patients July negative Pat ient has scheduled Echocardiogram q10y post treatment if mediastinum treated N/A PFTs As indicated N/A CBC,CMP, Lipids q1y Summer 2021 per PCP September [address] Sandoval Colonoscopy 2020 negative next in 2025 Interval History Ahsan reports feeling well. She is working. Continuing wellbutrin, cutting back on cigarettes. She has March 2021 follow up at [facility]. No pelvic pain or chest pain. Has been COVID vaccinated interested in booster. Has had some stress related to 3 recent deaths of close to her. Feels some guilt over this but coping. Current Therapy Surveillance Stage Cervical SCC FIGO IIB ([id number]) RUL NSCLC [id number] stage IA2 Social History: Current smoker 30+ pack years Drinks alcohol 2-3 drinks per week Allergies / Meds Allergies: Coded Allergies: No Known Allergies (Unverified , 10/29/14) Home Meds Active Scripts Lidocaine HCl (Lidocaine HCl Viscous) 15 Ml Solution, 15 ML PO QID for mouth sore pain for 1 Day, #100 ML 1 Refill Prov:YEIMI CHAPARRO MD 07/16/20 Sertraline Hcl (Sertraline HCl) 25 Mg Tablet, 1 TAB PO DAILY for 30 Days, #30 TAB 5 Refills Prov:YEIMI CHAPARRO MD 04/22/20 Ondansetron HCl (Ondansetron HCl) 8 Mg Tablet, 8 MG PO Q12HP PRN for NAUSEA OR VOMITING, #40 TAB 1 Refill Prov:JANINE SÁNCHEZ MD FAC 04/08/20 Oxycodone HCl (Oxycodone HCl) 5 Mg Tablet, 5 MG PO QIDP PRN for pain MDD 4 Tablet(s) for 30 Days, #120 TAB Prov:LIA ROA MD 03/27/20 Reported Medications Bupropion Hcl (Bupropion HCl Sr) 150 Mg Tab.sr.12h 07/16/20 Niacin (Inositol Niacinate) (Niacin Flush Free 500 mg Cap) 400 Mg Capsule, 2500 MG PO QHS, CAP 02/05/20 Losartan Potassium (Losartan Potassium) 50 Mg Tablet, 50 MG PO DAILY, TAB TAKES AT NOON 11/9/20 Amlodipine Besylate (Amlodipine Besylate) 10 Mg Tablet, 10 MG PO QHS, TAB 02/05/20 Carvedilol (Carvedilol) 6.25 Mg Tablet, 6.25 MG PO BID, TAB 02/05/20 Loratadine (Loratadine) 10 Mg Tablet, 10 MG PO DAILY, TAB 02/05/20 Review of Systems Review of Systems Constitutional: Denies: Fatigue, Weight Loss Eyes: Denies: Pain HEENT: Denies: Head Aches Skin: Denies: Rash Pulmonary: Reports: Dyspnea; Denies: Cough Cardiovascular: Denies: Chest Pain Gastrointestinal: Denies: Abdominal Pain Genitourinary: Denies: Dysuria, Hematuria Hematologic: Denies: Bruising, Bleeding Excessively Neurological: Denies: Weakness, Numbness Psych: Reports: Mood Normal Physical Examination Vital Signs Ht 60" Wt 115 lbs BMI 22 T 98 P 71 RR 18 BP 143/80 O2 99% Pain 0 Fatigue 0 General Exam: Alert, Cooperative, No Acute Distress Eye Exam: PERRLAAMANMI ENT EXAM: Atraumatic Neck Exam: Supple Chest Exam: Clear to auscultation; Negative: Rhonchi, Wheezing Heart Exam: Rate Normal, Regular Rhythm Abdomen Exam: Soft Extremity Exam: Negative: Edema Skin Exam: Nl turgor and temperature Neuro Exam: Normal Gait, Normal Speech, Cranial Nerves 3-12 NL Psych Exam: Mental status NL Diagnostic and Laboratory Diagnostic Review Radiologic images, relevant labs and pathology reports were personally reviewed and discussed with Ms. Scott. Assessment and Plan Impression Assessment Ms. Scott is a 65 year old female current smoker seen for a followup visit today at the department of radiation oncology for a history of FIGO IIB SCC of the cervix s/p chemoradiation 45 Gy in 25 fractions to the pelvis with weekly cisplatin completed 03/20/20 followed by brachytherapy boost 30 Gy in [address] Jaeger at [facility] completed 03/14/20. She also has biopsy proven RUL [id number] stage IA2 NSCLC s/p SBRT 60 Gy in 5 fractions completed 04/26/20. She is doing well, no bothersome symptoms. Her CT chest is negative, the only remnant of the treated lesion is a stable scar. She has appropriate gynecologic follow up at [facility]. Discussed that I would defer to her providers there regarding cervical cancer surveillance unless Ahsan or her physicians there raise concern and would like me to assist. In the meantime I will scan the chest again in 6 months time. We did discuss smoking cessation for 3 minutes, she continues wellbutrin, has been cutting back the number of cigarettes per day, she doesn't seem ready for an outright quit attempt today so will revisit at next appointment. She has no outstanding survivorship items. Will follow up in [address] chest. Performance Status ECOG 0 Plan Follow up in [address] chest Ms. Scott was encouraged to call with questions or concerns in the interim period. Billing Statement Total time of [24] minutes was spent preparing for the visit [1], obtaining HPI [4], examining the patient [2], reviewing diagnostic tests [3], discussing management options [6], coordinating care [2], and writing this note [6]. YEIMI CHAPARRO MD Feb 04, 2021 14:59
== END ==
LOC: M ONCR 13:46
PROVIDERS: ATTEND General Practice
DX: C53.0 Malignant neoplasm of endocervix (principal); C34.11 Malignant neoplasm of upper lobe, right bronchus or lung; Z92.3 Personal history of irradiation; Z92.21 Personal history of antineoplastic chemotherapy; Z79.899 Other long term (current) drug therapy; Z79.891 Long term (current) use of opiate analgesic; F17.210 Nicotine dependence, cigarettes, uncomplicated

== ENCOUNTER → 2021-05-14 | Outpatient (CLI) | payer MEDICARE ==
[~2021-05-14] MED LIST changes: +LOSA50TA28 PO; -LOSA50TA88 PO; +METO10TA2 PO; +ONDA-84 PO; -ONDA8TAB10 PO; -PROC10TA4 PO; +PROC10TA5 PO
== END ==
LOC: M RAD 06:50
PROVIDERS: ATTEND Family Medicine
DX: K76.9 Liver disease, unspecified (principal); N28.1 Cyst of kidney, acquired

== ENCOUNTER → 2021-05-15 | Outpatient (CLI) | payer MEDICARE | LOC: M ONCR 08:45 | PROVIDERS: ATTEND General Practice | DX: C34.11 Malignant neoplasm of upper lobe, right bronchus or lung (principal); F17.210 Nicotine dependence, cigarettes, uncomplicated; K76.89 Other specified diseases of liver; N28.1 Cyst of kidney, acquired; Z85.41 Personal history of malignant neoplasm of cervix uteri; Z92.21 Personal history of antineoplastic chemotherapy; Z92.3 Personal history of irradiation ==

== ENCOUNTER → 2021-07-30 | Outpatient (CLI) | payer MEDICARE ==
[~2021-07-30] MED LIST changes: +BUPR-71; -BUPR150T5
== END ==
LOC: M PLAIMG 09:03
PROVIDERS: ATTEND General Practice
DX: C34.90 Malignant neoplasm of unspecified part of unspecified bronchus or lung (principal)

== ENCOUNTER → 2021-08-06 | Outpatient (CLI) | payer MEDICARE | LOC: M ONCR 13:37 | PROVIDERS: ATTEND General Practice | DX: Z08 Encounter for follow-up examination after completed treatment for malignant neoplasm (principal); C34.11 Malignant neoplasm of upper lobe, right bronchus or lung; F17.200 Nicotine dependence, unspecified, uncomplicated; Z85.41 Personal history of malignant neoplasm of cervix uteri; Z79.891 Long term (current) use of opiate analgesic; Z79.899 Other long term (current) drug therapy; Z92.21 Personal history of antineoplastic chemotherapy; Z92.3 Personal history of irradiation; Z71.6 Tobacco abuse counseling ==

== ENCOUNTER → 2021-09-09 | Outpatient (CLI) | payer MEDICARE | LOC: M RAD 07:32 | PROVIDERS: ATTEND Obstetrics & Gynecology | DX: C53.1 Malignant neoplasm of exocervix (principal); R91.1 Solitary pulmonary nodule; K76.89 Other specified diseases of liver; N28.1 Cyst of kidney, acquired ==

== ENCOUNTER → 2022-01-27 | Outpatient (CLI) | payer MEDICARE | LOC: M RAD 09:49 | PROVIDERS: ATTEND General Practice | DX: C34.11 Malignant neoplasm of upper lobe, right bronchus or lung (principal) ==

== ENCOUNTER → 2022-01-28 | Outpatient (CLI) | payer MEDICARE | LOC: M ONCR 12:42 | PROVIDERS: ATTEND General Practice | DX: C34.11 Malignant neoplasm of upper lobe, right bronchus or lung (principal); C53.0 Malignant neoplasm of endocervix; F17.210 Nicotine dependence, cigarettes, uncomplicated; Z92.21 Personal history of antineoplastic chemotherapy; Z92.3 Personal history of irradiation; Z79.891 Long term (current) use of opiate analgesic; Z79.899 Other long term (current) drug therapy ==

== ENCOUNTER → 2022-09-30 | Outpatient (CLI) | payer MEDICARE, OTHER ==
[~2022-09-30] MED LIST changes: +LIDO15SO PO; -LIDO2SOL17 PO
[2022-09-30 11:16] LABS: BLOOD UREA NITROGEN 14 MG/DL (9-23); CALCIUM LEVEL 9.4 MG/DL (8.3-10.6); CARBON DIOXIDE LEVEL 23 MMOL/L (20-31); CHLORIDE LEVEL 108 MMOL/L (98-107); CREATININE FOR GFR 0.94 MG/DL (0.55-1.30); GLOMERULAR FILTRATION RATE > 60.0 (>45); GLUCOSE, FASTING 89 MG/DL (74-106); POTASSIUM SERUM 4.8 MMOL/L (3.5-5.1); SODIUM LEVEL 138 MMOL/L (136-145)
== END ==
LOC: M LAB 09:57
PROVIDERS: ATTEND Obstetrics & Gynecology
DX: Z01.812 Encounter for preprocedural laboratory examination (principal); Z79.899 Other long term (current) drug therapy

== ENCOUNTER → 2022-10-06 | Outpatient (CLI) | payer MEDICARE, OTHER ==
[~2022-10-06] MED LIST changes: +GASTROGRAFIN SOLUTION 30ML As Ordered ONE; +ISOVUE-300 61% 100ML VIAL As Ordered ONE; +ISOVUE-370 76% 100ML VIAL As Ordered ONE
== END ==
LOC: M RAD 12:15
PROVIDERS: ATTEND Obstetrics & Gynecology
DX: C53.1 Malignant neoplasm of exocervix (principal); C34.11 Malignant neoplasm of upper lobe, right bronchus or lung
CPT/HCPCS: 71260; 74177; Q9963; Q9967

== ENCOUNTER → 2023-02-02 | Outpatient (CLI) | payer MEDICARE ==
[~2023-02-02] MED LIST changes: -GASTROGRAFIN SOLUTION 30ML As Ordered ONE; -ISOVUE-300 61% 100ML VIAL As Ordered ONE; -ISOVUE-370 76% 100ML VIAL As Ordered ONE; +LORA-1041 PO; -LORA-674 PO
== END ==
LOC: M ONCR 14:47
PROVIDERS: ATTEND General Practice
DX: C53.0 Malignant neoplasm of endocervix (principal); C34.11 Malignant neoplasm of upper lobe, right bronchus or lung; F17.210 Nicotine dependence, cigarettes, uncomplicated; Z71.2 Person consulting for explanation of examination or test findings; Z79.899 Other long term (current) drug therapy; Z92.21 Personal history of antineoplastic chemotherapy; Z92.3 Personal history of irradiation

== ENCOUNTER 2023-04-27 11:43 | Day surgery (SDC) | payer MEDICARE ==
[~2023-04-27] VITALS: Ht 152.4 cm; Wt 51.1 kg
[~2023-04-27 11:43] MED LIST changes: -BUPR-71; +BUPR-71 PO; +CVS1CAP2 PO; +DICY20TA20 PO; +FLUT1BLS8; +MONT10TA97 PO; +NS 1,000 ML IV ONE; +THERTAB52 PO
[2023-04-27] MEDS ORDERED: LIDOCAINE 2% 100MG/5ML SDV (FOR ANES.) As Ordered ONE (12:55)
[2023-04-27] MEDS ORDERED: propofoL 200 MG/20 ML VIAL As Ordered ONE ×2 (12:55→13:43)
[2023-04-27] MEDS ORDERED: GLYCOPYRROLATE INJ 0.2 MG/ML 2 ML VIAL As Ordered ONE (12:55)
[2023-04-27 14:42] VITALS: BP 188/73; TEMP 98.8; O2SAT 100
== END 2023-04-27 14:40 | disposition home or self-care (01) ==
LOC: M OPP 11:43
PROVIDERS: ATTEND Internal Medicine Gastroenterology
DX: K64.8 Other hemorrhoids (principal); K62.7 Radiation proctitis; D49.0 Neoplasm of unspecified behavior of digestive system; R19.4 Change in bowel habit; K22.89 Other specified disease of esophagus; F17.200 Nicotine dependence, unspecified, uncomplicated; Z79.899 Other long term (current) drug therapy

== ENCOUNTER → 2023-11-23 | Outpatient (CLI) | payer MEDICARE, OTHER ==
[~2023-11-23] MED LIST changes: -LIDO15SO PO; +LIDO15SO8 PO; -NS 1,000 ML IV ONE
== END ==
LOC: M PLAIMG 09:50
PROVIDERS: ATTEND Internal Medicine Pulmonary Disease
DX: C34.11 Malignant neoplasm of upper lobe, right bronchus or lung (principal)

== ENCOUNTER → 2024-02-08 | Outpatient (CLI) | payer MEDICARE, OTHER ==
[~2024-02-08] MED LIST changes: +HYDR-3713 PO; +LEVO1TAB39 PO; +PRED50TA PO; +ROSU5TAB49 PO
== END ==
LOC: M WHC 11:12
PROVIDERS: ATTEND Nurse Practitioner Family
DX: N18.31 Chronic kidney disease, stage 3a (principal); C34.11 Malignant neoplasm of upper lobe, right bronchus or lung; C53.0 Malignant neoplasm of endocervix; J44.1 Chronic obstructive pulmonary disease with (acute) exacerbation; R91.8 Other nonspecific abnormal finding of lung field; F17.218 Nicotine dependence, cigarettes, with other nicotine-induced disorders; Z92.21 Personal history of antineoplastic chemotherapy; Z92.3 Personal history of irradiation; Z79.51 Long term (current) use of inhaled steroids; Z79.899 Other long term (current) drug therapy
CPT/HCPCS: 76775; G0463

== ENCOUNTER → 2024-02-08 | Outpatient (CLI) | payer MEDICARE, OTHER | LOC: M ONCR 11:55 | PROVIDERS: ATTEND General Practice | DX: C34.11 Malignant neoplasm of upper lobe, right bronchus or lung (principal); C53.0 Malignant neoplasm of endocervix; J44.1 Chronic obstructive pulmonary disease with (acute) exacerbation; R91.8 Other nonspecific abnormal finding of lung field; F17.218 Nicotine dependence, cigarettes, with other nicotine-induced disorders; Z92.21 Personal history of antineoplastic chemotherapy; Z92.3 Personal history of irradiation; Z79.51 Long term (current) use of inhaled steroids; Z79.899 Other long term (current) drug therapy ==

== ENCOUNTER → 2024-03-01 | Outpatient (CLI) | payer MEDICARE, OTHER ==
[~2024-03-01] MED LIST changes: +ISOVUE-370 76% 100ML VIAL As Ordered ONE
== END ==
LOC: M RAD 08:28
PROVIDERS: ATTEND Nurse Practitioner Family
DX: N28.89 Other specified disorders of kidney and ureter (principal)
CPT/HCPCS: 74160; Q9967

== ENCOUNTER → 2024-03-24 | Outpatient (CLI) | payer MEDICARE, OTHER ==
[~2024-03-24] MED LIST changes: -ISOVUE-370 76% 100ML VIAL As Ordered ONE
== END ==
LOC: M ONCR 14:44
PROVIDERS: ATTEND General Practice
DX: Z08 Encounter for follow-up examination after completed treatment for malignant neoplasm (principal); F17.210 Nicotine dependence, cigarettes, uncomplicated; Z85.118 Personal history of other malignant neoplasm of bronchus and lung; Z85.41 Personal history of malignant neoplasm of cervix uteri; Z79.899 Other long term (current) drug therapy; Z92.21 Personal history of antineoplastic chemotherapy; Z92.3 Personal history of irradiation

== ENCOUNTER → 2024-03-24 | Outpatient (CLI) | payer MEDICARE, OTHER | LOC: M RAD 10:34 | PROVIDERS: ATTEND General Practice | DX: C34.11 Malignant neoplasm of upper lobe, right bronchus or lung (principal); J47.9 Bronchiectasis, uncomplicated ==

== ENCOUNTER → 2025-03-16 | Outpatient (CLI) | payer MEDICARE ==
[~2025-03-16] MED LIST changes: -PRED50TA PO; +PRED50TA57 PO
== END ==
LOC: M RAD 07:42
PROVIDERS: ATTEND General Practice
DX: C34.90 Malignant neoplasm of unspecified part of unspecified bronchus or lung (principal)